=== PATIENT | female | born 1990 | race Caucasian/White ===

== ENCOUNTER 2019-03-27 09:14 | Inpatient (IN) | payer BC ==
[~2019-03-27] VITALS: Ht 157.5 cm; Wt 68.2 kg
[2019-03-27] VITALS (17 sets, daily range): BP systolic 107–135; BP diastolic 66–89
[2019-03-27] MEDS ORDERED: mag hydrox/Alum hydrox/simeth 30ml oral suspension PO ONE (09:50)
[2019-03-27] MEDS ORDERED: normal saline 1000ML IV soln IVB ONE (09:50)
[2019-03-27] MEDS ORDERED: proCHLORperazine 10 MG/2 ml inj IV ONE (09:50)
[2019-03-27] MEDS ORDERED: ondansetron/PF 4mg/2ml inj IV ONE (09:50)
[2019-03-27] MEDS ORDERED: famotidine/PF 10 mg/ml inj IV ONE (09:50)
[2019-03-27 09:54] LABS: BASOPHILS # (AUTO) 0.1 X10'3 (0-0.2); BASOPHILS % (AUTO) 0.7 % (0-1); EOSINOPHILS # (AUTO) 0.2 X10'3 (0-0.9); EOSINOPHILS % (AUTO) 0.9 % (0-6); HEMATOCRIT 42.9 % (35.0-45.0); LYMPHOCYTES # (AUTO) 1.7 X10'3 (1.1-4.8); LYMPHOCYTES % (AUTO) 9.9 % (21-51); MEAN CORPUSCULAR HEMOGLOBIN 30.2 PG (27.0-31.0); MEAN CORPUSCULAR HGB CONC 34.9 g/dL (33.0-36.5); MEAN CORPUSCULAR VOLUME 86.7 FL (78-98); MEAN PLATELET VOLUME 8.3 FL (7.4-10.4); MONOCYTES # (AUTO) 1.2 X10'3 (0-0.9); MONOCYTES % (AUTO) 6.8 % (2-12); NEUTROPHILS # (AUTO) 14.2 X10'3 (1.8-7.7); NEUTROPHILS % (AUTO) 81.7 % (42-75); PLATELET COUNT 317 X10'3 (140-440); RED BLOOD COUNT 4.95 X10'6 (4.20-5.60); WHITE BLOOD COUNT 17.4 X10'3 (4.5-11.0)
[2019-03-27] MEDS ORDERED: ketorolac trometh. 30mg/ml inj. IV ONE (09:55)
[2019-03-27 10:11] LABS: ALANINE AMINOTRANSFERASE 37 U/L (12-78); ALBUMIN 4.1 G/DL (3.4-5.0); ALBUMIN/GLOBULIN RATIO 1.1 (1.1-1.5); ALKALINE PHOSPHATASE 67 IU/L (46-116); ANION GAP 5 (8-16); ASPARTATE AMINO TRANSFERASE 12 U/L (10-37); BILIRUBIN,TOTAL 0.5 MG/DL (0.1-1.0); BLOOD UREA NITROGEN 9 MG/DL (7-18); CHLORIDE 102 MMOL/L (99-107); CREATININE 0.75 MG/DL (0.40-0.90); GLUCOSE 114 MG/DL (70-104); LIPASE 91 U/L (73-393); POTASSIUM 3.8 MMOL/L (3.5-5.1); SODIUM 137 MMOL/L (135-145); eGFR 90 ML/MIN
[2019-03-27] MEDS ORDERED: morphine 4 MG/ML inj SYRINge IV ONE (10:30)
[2019-03-27] MEDS ORDERED: piperacillin/tazo 3.375gm/50ml 50 ML IV SCH (11:25)
[2019-03-27 11:37] LABS: CLARITY,URINE CLEAR (Clear); COLOR,URINE STRAW (Yellow); GLUCOSE, URINE NEGATIVE (Neg); KETONES,URINE NEGATIVE (Neg); LEUKOCYTE ESTERASE ,URINE NEGATIVE (Neg); NITRITES, URINE NEGATIVE (Neg); OCCULT BLOOD,URINE TRACE-INTACT (Neg); PH,URINE 6.5 (4.8-8.0); PROTEIN,URINE NEGATIVE (Neg); UA COLLECTION TYPE CLN CATCH MIDSTREAM; URINE HCG NEGATIVE (NEG); UROBILINOGEN,URINE 0.2 E.U/dL (0.2-1.0)
[2019-03-27 11:46] LABS: RBC,URINE 0-2 /HPF (0-2); SQUAMOUS EPITHELIAL CELL,UR FEW /LPF (FEW); WBC,URINE 0-4 /HPF (0-4)
[2019-03-27 11:47] LABS: BACTERIA,URINE FEW /HPF (Neg)
[2019-03-27] MEDS ORDERED: TRAZ-251 PO (12:05)
[2019-03-27] MEDS ORDERED: CITA20TA2 PO (12:05)
[2019-03-27] MEDS ORDERED: ondansetron/PF 4mg/2ml inj IV PRN ×3 (12:40→17:45)
[2019-03-27] MEDS ORDERED: normal saline 1000ml 1,000 ML IV SCH (12:40)
[2019-03-27] MEDS ORDERED: magnesium hydroxide 30ml (MOM) UD suspension PO PRN (12:40)
--- NOTE | 2019-03-27 13:30 | NUR ---
Patient in room [facility]. I have received report from Jeffery arias and had the opportunity to ask questions and assume patient care.
[2019-03-27] MEDS ORDERED: ringers solution, lacted 1,000 ML IV SCH (14:08)
[2019-03-27] MEDS ORDERED: hydrALAZINE 20mg/ml inj. IV PRN (14:10)
[2019-03-27] MEDS ORDERED: labetalol 20mg/4ml (5mg/ml) syringe IV PRN (14:10)
[2019-03-27] MEDS ORDERED: morphine 4 MG/ML inj SYRINge IV PRN ×2 (14:10)
[2019-03-27] MEDS ORDERED: fentaNYL/PF 50MCG/1 ML 2ML syringe IV PRN ×2 (14:10)
--- NOTE | 2019-03-27 15:35 | NUR ---
pt transported to OR, belongings left in room. followed pt down to second floor.
[2019-03-27] MEDS ORDERED: fentaNYL/PF 50MCG/1 ML 2ML syringe ONE (15:37)
[2019-03-27] MEDS ORDERED: rocuronium 10mg/ml inj IV ONE (15:39)
[2019-03-27] MEDS ORDERED: neostigmine methylsulfate 1 MG/ML 10ml vial ONE (15:39)
[2019-03-27] MEDS ORDERED: propofol inj 20 ML IV ONE (15:39)
[2019-03-27] MEDS ORDERED: glycopyrrolate 0.2mg/ml inj ONE (15:39)
[2019-03-27] MEDS ORDERED: ondansetron/PF 4mg/2ml inj ONE (15:39)
[2019-03-27] MEDS ORDERED: LIDOcaine 2% (20mg/ml) 5ml vial ONE (15:39)
[2019-03-27] MEDS ORDERED: ceFAZolin 1000mg inj ONE (15:43)
[2019-03-27] MEDS ORDERED: BUPIVAcaine/PF 2.5 mg/ml (0.25%) 30ml vial ONE (15:43)
[2019-03-27] MEDS ORDERED: sevoflurane 250ml liquid IH ONE (16:14)
[2019-03-27] MEDS ORDERED: dexamethasone sod phosphate 10mg/ml inj ONE (16:14)
[2019-03-27] MEDS ORDERED: ceFOXitin 2 GM ADDVANTGE BAG 50 ML IV ONE (16:22)
[2019-03-27] MEDS ORDERED: midazolam 2 mg/2 ml injection ONE (16:33)
[2019-03-27] MEDS ORDERED: acetaminophen 1,000mg/100ml IV 100 ML IV ONE (16:42)
[2019-03-27] MEDS ORDERED: labetalol 20mg/4ml (5mg/ml) syringe IV ONE (16:50)
--- NOTE | 2019-03-27 17:45 | NUR ---
Received from OR via , accompanied by Anesthesiologist DR KING and report given by Anesthesiolgist. AWAKENS TO VOICE. VITALS STABLE. DRESSING DI. HADLEY PAIN. TREVON WITH SM AMNT SERO SANG IN BULB. ABD SOFT.
--- NOTE | 2019-03-27 18:10 | NUR ---
Problems reprioritized. Patient report given, questions answered & plan of care reviewed with RENETTA Puri.
--- NOTE | 2019-03-27 18:30 | NUR ---
I have received report from SOILA JACKSON and had the opportunity to ask questions and assume patient care. PATIENT IN RECOVERY ROOM AT THIS TIME POST LAP LAILA BY DR. DE ANDA.
--- NOTE | 2019-03-27 18:45 | NUR ---
Report called to receiving nurse. Transferred via BED Belongings . Special Issues communicated to receiving nurse. AWAKENS TO VOICE. VITALS STABLE. DRESSINGS DI. HADLEY PAIN. TO SURGICAL RM 344B AT THIS TIME.
--- NOTE | 2019-03-27 19:00 | NUR ---
PATIENT CAME BACK TO ROOM 344B FROM RECOVERY ROOM AFTER LAP LAILA WAS DONE BY DR. DE ANDA. PLACED COMFORTABLE IN BED. VITAL SIGNS MONITORED.
[2019-03-27] MEDS: potassium CL 20mEq in D5-1/2NS 1,000 ML IV SCH ×2 (19:10→20:02)
[2019-03-27] MEDS: piperacillin/tazo 3.375gm/50ml 50 ML IV SCH (19:20)
[2019-03-27] MEDS: morphine 2 MG/ML inj. syringe IV PRN (20:09)
[2019-03-27] MEDS: HYDROcodone/acetaminophen 10/325mg tab PO PRN (21:49)
[2019-03-27] MEDS: traZODone 50mg tablet PO SCH (21:49)
[2019-03-28] VITALS: BP 123/72
[2019-03-28] MEDS: piperacillin/tazo 3.375gm/50ml 50 ML IV SCH ×4 (01:03→23:59)
[2019-03-28] MEDS: HYDROcodone/acetaminophen 10/325mg tab PO PRN ×5 (03:54→23:59)
[2019-03-28] MEDS: potassium CL 20mEq in D5-1/2NS 1,000 ML IV SCH ×4 (03:55→23:41)
[2019-03-28 05:33] LABS: BASOPHILS % (AUTO) 0.2 % (0-1); EOSINOPHILS % (AUTO) 0 % (0-6); HEMATOCRIT 38.8 % (35.0-45.0); HEMOGLOBIN 13.3 g/dl (12.0-16.0); LYMPHOCYTES # (AUTO) 0.7 X10'3 (1.1-4.8); MEAN CORPUSCULAR HEMOGLOBIN 30.7 PG (27.0-31.0); MEAN CORPUSCULAR HGB CONC 34.3 g/dL (33.0-36.5); MEAN CORPUSCULAR VOLUME 89.5 FL (78-98); MEAN PLATELET VOLUME 8.6 FL (7.4-10.4); MONOCYTES # (AUTO) 0.8 X10'3 (0-0.9); MONOCYTES % (AUTO) 5.5 % (2-12); NEUTROPHILS # (AUTO) 13.1 X10'3 (1.8-7.7); NEUTROPHILS % (AUTO) 89.3 % (42-75); PLATELET COUNT 249 X10'3 (140-440); RED BLOOD COUNT 4.33 X10'6 (4.20-5.60); RED CELL DISTRIBUTION WIDTH 12.8 % (11.5-14.5); WHITE BLOOD COUNT 14.7 X10'3 (4.5-11.0)
[2019-03-28 05:54] LABS: ALBUMIN 3.4 G/DL (3.4-5.0); ANION GAP 9 (8-16); CALCIUM 8.1 MG/DL (8.5-10.1); CHLORIDE 106 MMOL/L (99-107); GLUCOSE 146 MG/DL (70-104); POTASSIUM 3.9 MMOL/L (3.5-5.1); SODIUM 141 MMOL/L (135-145); TOTAL CARBON DIOXIDE 26.1 MMOL/L (24-32)
[2019-03-28 06:05] LABS: BLOOD UREA NITROGEN 5 MG/DL (7-18); BUN/CREATININE RATIO 6.3 (6.6-38.0); CREATININE 0.79 MG/DL (0.40-0.90); eGFR 85 ML/MIN
--- NOTE | 2019-03-28 06:26 | NUR ---
Problems reprioritized. Patient report given, questions answered & plan of care reviewed with LAURYN JACKSON.
[2019-03-28] MEDS: citalopram 20mg tablet PO SCH (07:17)
[2019-03-28] MEDS: morphine 2 MG/ML inj. syringe IV PRN ×4 (07:18→21:43)
[2019-03-28 08:12] VITALS: BP 125/75
[2019-03-28 11:10] VITALS: BP 124/54
[2019-03-28 18:15] VITALS: BP 132/82
--- NOTE | 2019-03-28 18:25 | NUR ---
Problems reprioritized. Patient report given, questions answered & plan of care reviewed with RENETTA Gunn.
--- NOTE | 2019-03-28 18:27 | NUR ---
Patient in room [facility]. I have received report from RENETTA Galindo and had the opportunity to ask questions and assume patient care.
[2019-03-28] MEDS: traZODone 50mg tablet PO SCH (21:42)
[2019-03-28] MEDS: mag hydrox/Alum hydrox/simeth 30ml oral suspension PO PRN (23:19)
[2019-03-29] MEDS: piperacillin/tazo 3.375gm/50ml 50 ML IV SCH ×4 (00:46→23:33)
[2019-03-29 00:48] VITALS: BP 106/66
[2019-03-29] MEDS: acetaminophen 325mg tablet PO PRN ×2 (02:29→23:33)
[2019-03-29] MEDS: morphine 2 MG/ML inj. syringe IV PRN ×5 (02:35→23:26)
[2019-03-29] MEDS: HYDROcodone/acetaminophen 10/325mg tab PO PRN ×4 (04:53→21:02)
[2019-03-29 05:47] LABS: BASOPHILS % (AUTO) 0.4 % (0-1); EOSINOPHILS # (AUTO) 0.1 X10'3 (0-0.9); EOSINOPHILS % (AUTO) 1.8 % (0-6); HEMATOCRIT 32.4 % (35.0-45.0); HEMOGLOBIN 11.4 g/dl (12.0-16.0); LYMPHOCYTES # (AUTO) 1.4 X10'3 (1.1-4.8); LYMPHOCYTES % (AUTO) 18.3 % (21-51); MEAN CORPUSCULAR HEMOGLOBIN 31.3 PG (27.0-31.0); MEAN CORPUSCULAR HGB CONC 35.1 g/dL (33.0-36.5); MEAN CORPUSCULAR VOLUME 89.1 FL (78-98); MEAN PLATELET VOLUME 8.5 FL (7.4-10.4); MONOCYTES # (AUTO) 0.9 X10'3 (0-0.9); MONOCYTES % (AUTO) 10.8 % (2-12); NEUTROPHILS # (AUTO) 5.4 X10'3 (1.8-7.7); NEUTROPHILS % (AUTO) 68.7 % (42-75); PLATELET COUNT 208 X10'3 (140-440); RED BLOOD COUNT 3.64 X10'6 (4.20-5.60); WHITE BLOOD COUNT 7.9 X10'3 (4.5-11.0)
[2019-03-29 05:54] LABS: ALBUMIN 2.8 G/DL (3.4-5.0); ANION GAP 7 (8-16); BLOOD UREA NITROGEN 4 MG/DL (7-18); BUN/CREATININE RATIO 6.1 (6.6-38.0); CALCIUM 7.6 MG/DL (8.5-10.1); CHLORIDE 106 MMOL/L (99-107); CREATININE 0.66 MG/DL (0.40-0.90); GLUCOSE 130 MG/DL (70-104); POTASSIUM 3.7 MMOL/L (3.5-5.1); SODIUM 140 MMOL/L (135-145); eGFR > 90 ML/MIN
--- NOTE | 2019-03-29 06:28 | NUR ---
Problems reprioritized. Patient report given, questions answered & plan of care reviewed with RENETTA Galindo.
[2019-03-29 08:00] VITALS: BP 122/76
[2019-03-29] MEDS: potassium CL 20mEq in D5-1/2NS 1,000 ML IV SCH (08:05)
[2019-03-29] MEDS: citalopram 20mg tablet PO SCH (08:05)
[2019-03-29 11:00] VITALS: BP 143/93
[2019-03-29] MEDS ORDERED: iohexol 350MG/ML 100ml bottle IV ONE (12:04)
--- NOTE | 2019-03-29 12:19 | NUR ---
patient down to CT scan.
[2019-03-29] MEDS ORDERED: furosemide 20 MG/2 ML vial IV ONE (15:35)
[2019-03-29 18:00] VITALS: BP 117/75
--- NOTE | 2019-03-29 18:27 | NUR ---
Patient in room [facility]. I have received report from RENETTA Galindo and had the opportunity to ask questions and assume patient care.
--- NOTE | 2019-03-29 18:27 | NUR ---
Problems reprioritized. Patient report given, questions answered & plan of care reviewed with RENETTA HOLDEN.
--- NOTE | 2019-03-29 18:29 | NUR ---
PATIENT NOT COMPLIANT WITH INCENTIVE SPIROMETRY. REFUSING TO TAKE DEEP BREATHS EVEN AFTER BEING MEDICATED FOR PAIN. Addendum: 03/29/19 at 1830 by Josie Velasco RN Amended: Links added.
[2019-03-29] MEDS: mag hydrox/Alum hydrox/simeth 30ml oral suspension PO PRN (19:00)
[2019-03-29] MEDS: traZODone 50mg tablet PO SCH (21:01)
[2019-03-30] VITALS: BP 106/59
[2019-03-30] MEDS: HYDROcodone/acetaminophen 10/325mg tab PO PRN ×3 (01:25→15:57)
[2019-03-30] MEDS: morphine 2 MG/ML inj. syringe IV PRN ×2 (03:27→09:06)
--- NOTE | 2019-03-30 04:51 | NUR ---
Titrated oxygen saturation for patient throughout shift. Patient without NC, O2 sat=mid 80s, with 0.5L NC=low 90s. Will continue to monitor patient.
[2019-03-30 05:14] LABS: BASOPHILS % (AUTO) 0.6 % (0-1); EOSINOPHILS # (AUTO) 0.3 X10'3 (0-0.9); EOSINOPHILS % (AUTO) 3.7 % (0-6); HEMATOCRIT 37.3 % (35.0-45.0); HEMOGLOBIN 12.6 g/dl (12.0-16.0); LYMPHOCYTES # (AUTO) 1.9 X10'3 (1.1-4.8); LYMPHOCYTES % (AUTO) 24.5 % (21-51); MEAN CORPUSCULAR HEMOGLOBIN 30.6 PG (27.0-31.0); MEAN CORPUSCULAR HGB CONC 33.9 g/dL (33.0-36.5); MEAN CORPUSCULAR VOLUME 90.3 FL (78-98); MEAN PLATELET VOLUME 8.4 FL (7.4-10.4); MONOCYTES # (AUTO) 0.8 X10'3 (0-0.9); MONOCYTES % (AUTO) 10.8 % (2-12); NEUTROPHILS # (AUTO) 4.6 X10'3 (1.8-7.7); NEUTROPHILS % (AUTO) 60.4 % (42-75); PLATELET COUNT 255 X10'3 (140-440); RED BLOOD COUNT 4.13 X10'6 (4.20-5.60); RED CELL DISTRIBUTION WIDTH 12.8 % (11.5-14.5); WHITE BLOOD COUNT 7.6 X10'3 (4.5-11.0)
[2019-03-30 05:18] LABS: ALBUMIN 3.1 G/DL (3.4-5.0); ANION GAP 6 (8-16); BLOOD UREA NITROGEN 6 MG/DL (7-18); BUN/CREATININE RATIO 7.1 (6.6-38.0); CALCIUM 8.8 MG/DL (8.5-10.1); CHLORIDE 101 MMOL/L (99-107); CREATININE 0.84 MG/DL (0.40-0.90); GLUCOSE 89 MG/DL (70-104); POTASSIUM 3.8 MMOL/L (3.5-5.1); SODIUM 140 MMOL/L (135-145); TOTAL CARBON DIOXIDE 33.3 MMOL/L (24-32); eGFR 79 ML/MIN
--- NOTE | 2019-03-30 06:20 | NUR ---
Problems reprioritized. Patient report given, questions answered & plan of care reviewed with Sudha Marshall RN.
[2019-03-30 07:00] VITALS: BP 107/68
--- NOTE | 2019-03-30 07:02 | NUR ---
Patient in room [facility]. I have received report from RENETTA Gunn and had the opportunity to ask questions and assume patient care.
[2019-03-30] MEDS: piperacillin/tazo 3.375gm/50ml 50 ML IV SCH ×2 (09:06→16:00)
[2019-03-30] MEDS: citalopram 20mg tablet PO SCH (09:06)
[2019-03-30 11:00] VITALS: BP 128/81
[2019-03-30] MEDS ORDERED: AMOX-422 PO (15:40)
--- NOTE | 2019-03-30 17:25 | NUR ---
PATIENT STABLE AND APPROPRIATE FOR DISCHARGE, IV TAKEN OUT, EDUCATION GIVEN, ALL BELONGINGS SENT WITH PATIENT, PATIENT TAKEN TO LOBBY IN A WHEEL CHAIR TO AN AWAITING CAR WHERE WILL TAKE PATIENT HOME
== END 2019-03-30 17:28 | disposition home or self-care (01) | DRG 418 ==
LOC: ER 09:14 → ED HOLD 12:58 → SUR 3N 13:46 → OBSVTOIN 03-29 14:54
PROVIDERS: ADMIT Family Medicine; ATTEND Hospitalist
PROC: 0FT44ZZ Resection of Gallbladder, Percutaneous Endoscopic Approach (ICD-10-PCS; principal; 2019-03-27 16:14)
PROC: B32T1ZZ Computerized Tomography (CT Scan) of Left Pulmonary Artery using Low Osmolar Contrast (ICD-10-PCS; 2019-03-29)
PROC: B3201ZZ Computerized Tomography (CT Scan) of Thoracic Aorta using Low Osmolar Contrast (ICD-10-PCS; 2019-03-29)
PROC: B32S1ZZ Computerized Tomography (CT Scan) of Right Pulmonary Artery using Low Osmolar Contrast (ICD-10-PCS; 2019-03-29)
DX: K80.00 Calculus of gallbladder with acute cholecystitis without obstruction (principal); J98.11 Atelectasis; R06.03 Acute respiratory distress; F41.8 Other specified anxiety disorders; Z98.891 History of uterine scar from previous surgery; Z79.899 Other long term (current) drug therapy
CPT/HCPCS: 96365; 96375; 99285; Z7506; Z7508; 36415; 71275; 76700; 80048; 80053; 81001; 81025; 82948; 83605; 83690; 85025; 87040; 87081; A4215; A4618; A6402; A7000; G0378; J0131; J0690; J0694; J0780; J1100; J1885; J1940; J2001; J2250; J2270; J2405; J2543; J2704; J2710; J3010; J3480; J3490; J7030; J7120; Q9967

== ENCOUNTER 2019-04-03 12:23 | Outpatient (CLI) | payer BC ==
[~2019-04-03 12:23] MED LIST: AMOX-422 PO; CITA20TA2 PO; TRAZ-251 PO
[2019-04-03 13:04] LABS: ALANINE AMINOTRANSFERASE 155 U/L (12-78); ALBUMIN 3.7 G/DL (3.4-5.0); ALBUMIN/GLOBULIN RATIO 0.9 (1.1-1.5); ANION GAP 6 (8-16); ASPARTATE AMINO TRANSFERASE 41 U/L (10-37); BILIRUBIN,TOTAL 0.4 MG/DL (0.1-1.0); BLOOD UREA NITROGEN 7 MG/DL (7-18); BUN/CREATININE RATIO 8.6 (6.6-38.0); CALCIUM 8.9 MG/DL (8.5-10.1); CHLORIDE 102 MMOL/L (99-107); CREATININE 0.81 MG/DL (0.40-0.90); GLUCOSE 107 MG/DL (70-104); POTASSIUM 3.9 MMOL/L (3.5-5.1); SODIUM 139 MMOL/L (135-145); TOTAL CARBON DIOXIDE 31.4 MMOL/L (24-32); TOTAL PROTEIN 7.6 G/DL (6.4-8.2); eGFR 82 ML/MIN
[2019-04-03 13:24] LABS: ALKALINE PHOSPHATASE 93 IU/L (46-116)
== END 2019-04-03 23:59 | disposition home or self-care (01) ==
LOC: LAB 12:23
PROVIDERS: ATTEND Surgery
DX: K80.20 Calculus of gallbladder without cholecystitis without obstruction (principal); R10.11 Right upper quadrant pain; R82.998 Other abnormal findings in urine
CPT/HCPCS: 36415; 80053

== ENCOUNTER 2019-04-13 22:13 | Emergency (ER) | payer BC ==
[~2019-04-13] VITALS: Ht 157.5 cm; Wt 81.8 kg
--- NOTE | 2019-04-13 22:27 | NUR ---
Discussed pt status with ANNA Solis. New order received for benadryl 50mg, reglan and NS 1L bolus.
[2019-04-13] MEDS ORDERED: normal saline 1000ml 1,000 ML IV ONE (22:30)
[2019-04-13] MEDS ORDERED: metoclopramide 5 mg/ml inj IV ONE (22:30)
[2019-04-13] MEDS ORDERED: diphenhydrAMINE 50 mg/ml inj IV ONE (22:30)
[2019-04-13 22:46] LABS: BASOPHILS # (AUTO) 0.1 X10'3 (0-0.2); BASOPHILS % (AUTO) 1.1 % (0-1); EOSINOPHILS # (AUTO) 0.8 X10'3 (0-0.9); EOSINOPHILS % (AUTO) 7.3 % (0-6); HEMATOCRIT 41.5 % (35.0-45.0); HEMOGLOBIN 14.5 g/dl (12.0-16.0); LYMPHOCYTES # (AUTO) 3.9 X10'3 (1.1-4.8); LYMPHOCYTES % (AUTO) 34.1 % (21-51); MEAN CORPUSCULAR HEMOGLOBIN 30.3 PG (27.0-31.0); MEAN CORPUSCULAR VOLUME 86.7 FL (78-98); MEAN PLATELET VOLUME 8.3 FL (7.4-10.4); MONOCYTES # (AUTO) 0.9 X10'3 (0-0.9); MONOCYTES % (AUTO) 7.7 % (2-12); NEUTROPHILS # (AUTO) 5.7 X10'3 (1.8-7.7); NEUTROPHILS % (AUTO) 49.8 % (42-75); PLATELET COUNT 397 X10'3 (140-440); RED BLOOD COUNT 4.78 X10'6 (4.20-5.60); WHITE BLOOD COUNT 11.4 X10'3 (4.5-11.0)
[2019-04-13 22:57] LABS: ALANINE AMINOTRANSFERASE 58 U/L (12-78); ALBUMIN 3.9 G/DL (3.4-5.0); ALKALINE PHOSPHATASE 77 IU/L (46-116); ANION GAP 11 (8-16); ASPARTATE AMINO TRANSFERASE 29 U/L (10-37); BILIRUBIN,TOTAL 0.3 MG/DL (0.1-1.0); BLOOD UREA NITROGEN 9 MG/DL (7-18); BUN/CREATININE RATIO 13.2 (6.6-38.0); CHLORIDE 107 MMOL/L (99-107); CREATININE 0.68 MG/DL (0.40-0.90); GLUCOSE 106 MG/DL (70-104); LIPASE 221 U/L (73-393); POTASSIUM 3.8 MMOL/L (3.5-5.1); SODIUM 143 MMOL/L (135-145); TOTAL CARBON DIOXIDE 25.4 MMOL/L (24-32); TOTAL PROTEIN 7.7 G/DL (6.4-8.2); eGFR > 90 ML/MIN
[2019-04-13 23:09] VITALS: BP 131/89
[2019-04-13 23:10] LABS: CLARITY,URINE CLEAR (Clear); COLOR,URINE STRAW (Yellow); GLUCOSE, URINE NEGATIVE (Neg); KETONES,URINE NEGATIVE (Neg); LEUKOCYTE ESTERASE ,URINE NEGATIVE (Neg); NITRITES, URINE NEGATIVE (Neg); OCCULT BLOOD,URINE NEGATIVE (Neg); PROTEIN,URINE NEGATIVE (Neg); UROBILINOGEN,URINE 0.2 E.U/dL (0.2-1.0)
[2019-04-13] MEDS ORDERED: ketorolac trometh. 30mg/ml inj. IV ONE (23:10)
[2019-04-13 23:11] LABS: UA COLLECTION TYPE CLN CATCH MIDSTREAM
[2019-04-13] MEDS ORDERED: ONDA8TAB6 PO (23:11)
[2019-04-13 23:12] LABS: URINE HCG NEGATIVE (NEG)
== END 2019-04-13 23:33 | disposition home or self-care (01) ==
LOC: ER 22:15
DX: K29.00 Acute gastritis without bleeding (principal); F41.9 Anxiety disorder, unspecified; F32.9 Major depressive disorder, single episode, unspecified; Z90.49 Acquired absence of other specified parts of digestive tract; Z98.890 Other specified postprocedural states; Z60.2 Problems related to living alone; Z79.2 Long term (current) use of antibiotics; Z79.899 Other long term (current) drug therapy
CPT/HCPCS: 36415; 80053; 81003; 81025; 83690; 85025; 96361; 96374; 96375; 99283; J1200; J1885; J2765; J7030

== ENCOUNTER 2021-06-28 18:14 | Emergency (ER) | payer OTHER, BC ==
[~2021-06-28] VITALS: Ht 157.5 cm; Wt 83.5 kg
[~2021-06-28 18:14] MED LIST changes: -AMOX-422 PO; +ONDA8TAB6 PO
[2021-06-28 18:18] VITALS: BP 193/125
[2021-06-28] MEDS ORDERED: HYDROcodone/acetaminophen 10/325mg tab PO ONE (18:25)
[2021-06-28] MEDS ORDERED: ketorolac trometh. 30mg/ml inj. IM ONE (18:25)
[2021-06-28] MEDS ORDERED: orphenadrine citrate 60mg/2ml inj. IM ONE (18:25)
--- NOTE | 2021-06-28 20:33 | NUR ---
PATIENT GIVEN RX MEDS, SHE TOLLERATED WELL. PATIENT WILL SIT IN LOBBY AWAITING ROOM. PATIENT WILL ADVISE IF ANY ADVERSE REACTIONS. PATIENT IS COOPERATIVE AND WELL ORIENTED.
[2021-06-28] MEDS ORDERED: HYDR-3972 PO (23:46)
[2021-06-28] MEDS ORDERED: ORPH100T2 PO (23:46)
== END 2021-06-29 01:05 | disposition home or self-care (01) ==
LOC: ER 18:15
DX: S62.306A Unspecified fracture of fifth metacarpal bone, right hand, initial encounter for closed fracture (principal); S16.1XXA Strain of muscle, fascia and tendon at neck level, initial encounter; M79.641 Pain in right hand; G44.209 Tension-type headache, unspecified, not intractable; Z90.49 Acquired absence of other specified parts of digestive tract; Z98.890 Other specified postprocedural states; Z72.89 Other problems related to lifestyle; Z60.2 Problems related to living alone; Z79.899 Other long term (current) drug therapy; V99.XXXA Unspecified transport accident, initial encounter; Y93.89 Activity, other specified; Y92.89 Other specified places as the place of occurrence of the external cause; Y99.8 Other external cause status
CPT/HCPCS: 29125; 73130; 96372; 99284; J1885; J2360; 99283